=== PATIENT | female | born 1945 | race Hispanic/Latino ===

== ENCOUNTER 2018-01-22 09:38 | Inpatient (IN) | payer MEDICARE ==
[2018-01-22 10:29] VITALS: BMI 42.9
--- NOTE | 2018-01-22 11:19 | ED PDOC ---
Arrival/HPI - General Chief Complaint: Lower Extremity Problem/Injury Time Seen by Provider: 01/22/18 10:19 Historian: Patient - History of Present Illness Narrative History of Present Illness (Text): 01/22/18 11:12 72yo female with pmhx of chronic LE ulcer, diabetes, bib EMS because she couldn't get a corn husk baler/traction to be able to stand up. Patient states her carpet was removed 2days ago and when she tried to stand up on her floor, even with surgical shoes last night, she wasn't able to stand. States her visiting nurse referred her to ED for evaluation of possible causes. She denies pain in ED. Denies fever, chills, nausea, chest pain, trauma, any other complaint. Past Medical History - Provider Review Nursing Documentation Reviewed: Yes - Cardiac Hx Cardiac Disorders: Yes Hx Hypertension: Yes - Renal Hx Renal Failure: Yes - Endocrine/Metabolic Hx Diabetes Mellitus Type 2: Yes - Hematological/Oncological Hx Blood Transfusions: No Hx Blood Transfusion Reaction: No - Musculoskeletal/Rheumatological Hx Arthritis: Yes - Psychiatric Hx Depression: No Hx Emotional Abuse: No Hx Physical Abuse: No Hx Substance Use: No - Past Surgical History Past Surgical History: No Previous - Surgical History Other/Comment: cyst removal 1990 - Anesthesia Hx Anesthesia Reactions: No Hx Malignant Hyperthermia: No - Suicidal Assessment Feels Threatened In Home Enviroment: No Family/Social History - Physician Review Nursing Documentation Reviewed: Yes Family/Social History: Unknown Family HX Smoking Status: Never Smoked Hx Alcohol Use: No Hx Substance Use: No Hx Substance Use Treatment: No Allergies/Home Meds Allergies/Adverse Reactions: Allergies Penicillins Allergy (Verified 01/22/18 15:13) ITCHING Review of Systems - Physician Review All systems were reviewed & negative as marked: Yes - Review of Systems Constitutional: Normal Eyes: Normal ENT: Normal Respiratory: Normal Cardiovascular: Normal Gastrointestinal: Normal Genitourinary Female: Normal Musculoskeletal: Arthralgias (B/L leg weakness/ulcer) Skin: Normal Neurological: Normal Endocrine: Normal Hemo/Lymphatic: Normal Psychiatric: Normal Physical Exam Vital Signs Reviewed: Yes Vital Signs Temp Pulse Resp BP Pulse Ox 01/22/18 10:00 98.3 F 71 16 165/77 H 98 Temperature: Afebrile Blood Pressure: Normal Pulse: Regular Respiratory Rate: Normal Appearance: Positive for: Well-Appearing, Non-Toxic, Comfortable Pain Distress: None Mental Status: Positive for: Alert and Oriented X 3 - Systems Exam Head: Present: Atraumatic, Normocephalic Pupils: Present: PERRL Extroacular Muscles: Present: EOMI Conjunctiva: Present: Normal Mouth: Present: Moist Mucous Membranes Neck: Present: Normal Range of Motion Respiratory/Chest: Present: Clear to Auscultation, Good Air Exchange. No: Respiratory Distress, Accessory Muscle Use Cardiovascular: Present: Regular Rate and Rhythm, Normal S1, S2. No: Murmurs Abdomen: No: Tenderness, Distention, Peritoneal Signs Back: Present: Normal Inspection Upper Extremity: Present: Normal Inspection. No: Cyanosis, Edema Lower Extremity: Present: Edema (3+ nonpitting edema), Normal ROM, Erythema (B/L lower leg), Other (Weeping venous stasis ulceration). No: NORMAL PULSES (Nonpalpable secondary to edema), Tenderness, Temperature Abnormalties, Neurovascularly Intact (Diminshed) Neurological: Present: GCS=15, CN II-XII Intact, Speech Normal Skin: Present: Warm, Dry, Normal Color. No: Rashes Psychiatric: Present: Alert, Oriented x 3, Normal Insight, Normal Concentration Medical Decision Making ED Course and Treatment: 01/22/18 16:16 72yo female bib EMS for b/l lower leg weakness. Pt noted that she was scheduled for wound care on Friday with Dr. Dixon. case was TONIA Lorenzo who saw pt in ED. Pt had possible cellulitis of her b/l lower extremity. On removing the dressing by Dr. Lorenzo, pt was also noted to have bed bug . Rash was noted on patient b/l hands and legs. He redressed the wound and pt was placed in isolation. Protocols was taken to disinfect area. Labs was ordered and lukopenia was noted. Pt was admitted for cellulitis and vanco was ordered. She is allergic for cellulitis. Case was TONIA Vance who accepted the pt. Dr. Chaidez was paged but never returnedthe call CXR NAD Disposition/Present on Arrival - Present on Arrival Any Indicators Present on Arrival: No History of DVT/PE: No History of Uncontrolled Diabetes: Yes Urinary Catheter: No History of Decub. Ulcer: No History Surgical Site Infection Following: None - Disposition Have Diagnosis and Disposition been Completed?: Yes Diagnosis: Cellulitis, Bedbug bite Disposition: HOSPITALIZED Disposition Time: 10:15 Patient Plan: Admission Patient Problems: Current Active Problems Problem Status Onset Bedbug bite Acute Cellulitis Acute Condition: STABLE
[2018-01-22 12:38] LABS: BASO # 0.03 K/mm3 (0.0-2.0); BASO % 1.1 % (0.0-3.0); EOS # 0.1 (0.0-0.7); EOS % 3.2 % (1.5-5.0); GRAN # 1.66 (1.4-6.5); GRAN % 58.8 % (50.0-68.0); HEMOGLOBIN 11.6 g/dL (12.0-16.0); LYMPH # 0.7 (1.2-3.4); LYMPH % 25.9 % (22.0-35.0); MEAN CELL VOLUME 84.8 fl (80.0-105.0); MEAN CORPUSCULAR HEMOGLOBIN 28.5 pg (25.0-35.0); MEAN CORPUSCULAR HGB CONC 33.6 g/dl (31.0-37.0); MEAN PLATELET VOLUME 10.2 fl (7.0-11.0); MONO # 0.3 (0.1-0.6); RBC 4.07 10^6/uL (3.5-6.1); RED CELL DISTRIBUTION WIDTH 15.2 % (11.5-14.5)
[2018-01-22 12:41] LABS: WHITE BLOOD COUNT 2.8 10^3/ul (4.5-11.0)
[2018-01-22 12:48] LABS: INR 1.14; PARTIAL THROMBOPLASTIN TIME 27.1 Seconds (25.1-36.5); PROTHROMBIN TIME 13.1 SECONDS (9.4-12.5)
--- NOTE | 2018-01-22 13:11 | CON ---
DATE: 01/22/2018 HISTORY OF PRESENT ILLNESS: A 72-year-old female well-known to the [facility] wound care team, was seen in the emergency room for bilateral diabetic venous stasis ulcerations. The patient was unable to come to the wound center on Friday and recently had her carpets removed, which revealed bed bugs and her visiting nurse refused to come to the house until the bed bug infestation was eradicated. The visiting nurse instructed her to go to the emergency room. The patient was seen in the emergency room and bed bugs were not noticed until her dressing changes were removed, invisible bed bugs were evident. Clinical manifestations including rash were evident on her hands upon further examination. PAST MEDICAL HISTORY: The patient's medical history is significant for chronic venous hypertension with severe peripheral vascular disease, type 2 diabetes with peripheral vascular disease and diabetic neuropathy as well as cardiac disease, renal failure and osteoarthritis. PAST SURGICAL HISTORY: Includes cyst removal. SOCIAL HISTORY: The patient denies illicit drug use. Does not use drink alcohol and never used tobacco products. ALLERGIES: THE PATIENT'S ALLERGIES INCLUDE PENICILLIN, SEVERE ITCHING; ALSO ALLERGIC TO CLINDAMYCIN. CURRENT MEDICATIONS: Include metformin. The patient denies any other medications. The patient's vital signs today revealed temperature of 98.3, pulse rate of 71, blood pressure of 165/77, respiratory rate of 16. No hematology report is available at this time. No chemistries were drawn as of yet. OBJECTIVE: The patient's dressings were removed and at this time bed bug infestation was not evident. Both lower legs present with numerous superficial weeping venous stasis ulcerations. None of the ulcers probe to tendon or bone. There is no purulence. There is no underlying abscess formation noted. None of the wounds probe to bone. The area is void of any cellulitic activity at this time. There is +3 nonpitting lower extremity edema noted. The pedal pulses are nonpalpable secondary to edema. The patient has diminished protective sensation using 5.07 g monofilament wire testing bilaterally. Upon dressing removal and change, there was noted to be numerous bed bugs scattered about her emergency room bed and excoriations were present on both dorsal hands. ASSESSMENT: Diabetic with severe peripheral vascular disease and chronic venous stasis ulcerations with suspected cellulitis bilaterally. PLAN: The patient's wounds were cleansed with normal sterile saline and wounds were covered with Xeroform and a light compressive dressing. At this time, emergency room staff was notified of the presence of bed bugs. The patient was isolated in a room and the door was closed. Proper bed bug infestation protocols were then carried out. The patient will be seen and followed once admitted. David Lorenzo DPM
[2018-01-22] MEDS ORDERED: Vancomycin 1gm in NS 250ml 1 GM/250 ML BAG IVPB STA (13:16)
--- NOTE | 2018-01-22 14:33 | RAD ---
Date of service: 01/22/2018 HISTORY: admission COMPARISON: [id number]. FINDINGS: LUNGS: No active pulmonary disease. PLEURA: No significant pleural effusion identified, no pneumothorax apparent. CARDIOVASCULAR: No atherosclerotic calcification present No radiographic findings to suggest acute or significant cardiovascular disease. OSSEOUS STRUCTURES: No significant abnormalities. VISUALIZED UPPER ABDOMEN: Normal. OTHER FINDINGS: None. IMPRESSION: No active disease. No significant interval change compared to the prior examination(s).
[2018-01-22 14:38] LABS: ALB/GLOB RATIO 0.9 (1.1-1.8); ALBUMIN 3.6 g/dL (3.0-4.8); ALT/SGPT 25 U/L (7-56); AST/SGOT 24 U/L (14-36); BLOOD UREA NITROGEN 18 mg/dL (7-21); CALCIUM 9.6 mg/dL (8.4-10.5); GFR NON-AFRICAN AMERICAN > 60
[2018-01-22] MEDS ORDERED: Influenza Vaccine 60 mcg/0.5 mL SYR (4YR UP) IM ONE (23:00)
[2018-01-22] MEDS ORDERED: Pneumococcal 23-Valent Vaccine IM ONE (23:00)
[2018-01-23] MEDS: Pantoprazole 40 mg EC Tab PO SCH (09:38)
[2018-01-23] MEDS: Insulin Reg-LOW-Coverage SC SCH ×2 (12:11→16:22)
--- NOTE | 2018-01-23 16:06 | CP.PCM.PCO ---
Physician Communication Note - Physician Communication Note Physician Communication Note: Ulc Nevus face-Needs removal(-Friday)
--- NOTE | 2018-01-23 19:59 | CP.PCM.PN ---
<Aicha Centeno - Last Filed: 01/23/18 20:34> Subjective - Date & Time of Evaluation Date of Evaluation: 01/23/18 Time of Evaluation: 19:53 - Subjective Subjective: Podiatry progress note for dr. Lorenzo, 72 year old female well known to podiatry was seen at [facility] for bilateral diabetic venous stasis ulcerations. The patient is seen resting comfortable, AAox3 and in NAD. patients dressings are seen to be dry, clean and intact. Patient denies any new pedal complains. PAtient denies any acute overnight events. denies f/n/v/sob/calf pain. Objective - Vital Signs/Intake and Output Vital Signs (last 24 hours): Temp Pulse Resp BP Pulse Ox 98.2 F 63 19 119/79 96 01/23/18 06:00 01/23/18 06:00 01/23/18 06:00 01/23/18 09:38 01/23/18 06:00 Intake and Output: 01/23/18 01/24/18 18:59 06:59 Intake Total 480 Balance 480 - Medications Medications: Current Medications Insulin Human Regular (Humulin R Low) 0 units SC [facility]; Protocol Last Admin: 01/23/18 16:22 Dose: Not Given Lisinopril (Zestril) 10 mg PO DAILY [facility] Last Admin: 01/23/18 09:38 Dose: 10 mg Metformin HCl (Glucophage) 500 mg PO DAILY [facility] Last Admin: 01/23/18 09:38 Dose: 500 mg Pantoprazole Sodium (Protonix Ec Tab) 40 mg PO DAILY [facility] Last Admin: 01/23/18 09:38 Dose: 40 mg Tramadol HCl (Ultram) 50 mg PO Q8H PRN PRN Reason: Pain, Mild (1-3) Last Admin: 01/23/18 13:24 Dose: 50 mg - Labs Labs: 01/22/18 12:20 01/22/18 14:00 PT 13.1 SECONDS (9.4-12.5) H 01/22/18 12:20 INR 1.14 01/22/18 12:20 APTT 27.1 Seconds (25.1-36.5) 01/22/18 12:20 - Constitutional Appears: Well, Non-toxic, No Acute Distress - Head Exam Head Exam: ATRAUMATIC, NORMOCEPHALIC - Extremities Exam Additional comments: Dressing clean, dry, and intact. From previous note: vascular: nonpalpable DP.PT secondary to edema, minimal erythema to bilateral lower extremity. CFT<3 secs x 10 derm: bilateral lower leg numerous superficial weeping venous stasis ulcerations, non probe to tendon or bone, no purulence, no underlying abscess formation noted, void of cellulitic activity, +3 nonpitting edema to lower extremity b/l neuro: diminished protective sensation ortho: no pain on palpation to the lower extremity b/l - Neurological Exam Neurological Exam: Alert, Awake, Oriented x3 - Psychiatric Exam Psychiatric exam: Normal Affect, Normal Mood - Skin Skin Exam: Normal Color Assessment and Plan - Assessment and Plan (Free Text) Assessment: 72 yo female with severe peripheral vascular disease and chronic venous stasis ulcerations with suspected cellulitis bilaterally. Plan: Patient seen and evaluated chart, labs and vitals reviewed; afebrile and WBC 2.8 bilateral lower extremity dressing clean, dry and intact; dressed with xeroform, gauze, ABD, kerlix, and tubigrip patient stable for discharge from podiatry point of view. Podiatry will continue to follow the patient while in house <David Lorenzo - Last Filed: 01/24/18 09:26> Objective - Vital Signs/Intake and Output Vital Signs (last 24 hours): Temp Pulse Resp BP Pulse Ox 98.5 F 98 H 18 140/79 95 01/24/18 08:17 01/24/18 08:17 01/24/18 08:17 01/24/18 08:17 01/24/18 08:17 Intake and Output: 01/24/18 01/24/18 06:59 18:59 Intake Total 840 Balance 840 - Medications Medications: Current Medications Doxycycline Hyclate (Doryx) 100 mg PO Q12 [facility]; Protocol Insulin Human Regular (Humulin R Low) 0 units SC [facility]; Protocol Last Admin: 01/24/18 08:44 Dose: Not Given Lisinopril (Zestril) 10 mg PO DAILY [facility] Last Admin: 01/23/18 09:38 Dose: 10 mg Metformin HCl (Glucophage) 500 mg PO DAILY [facility] Last Admin: 01/23/18 09:38 Dose: 500 mg Pantoprazole Sodium (Protonix Ec Tab) 40 mg PO DAILY [facility] Last Admin: 01/23/18 09:38 Dose: 40 mg Tramadol HCl (Ultram) 50 mg PO Q8H PRN PRN Reason: Pain, Mild (1-3) Last Admin: 01/23/18 13:24 Dose: 50 mg - Labs Labs: 01/22/18 12:20 01/22/18 14:00 PT 13.1 SECONDS (9.4-12.5) H 01/22/18 12:20 INR 1.14 01/22/18 12:20 APTT 27.1 Seconds (25.1-36.5) 01/22/18 12:20 Attending/Attestation - Attestation I have personally seen and examined this patient.: Yes I have fully participated in the care of the patient.: Yes I have reviewed all pertinent clinical information, including history, physical exam and plan: Yes
--- NOTE | 2018-01-24 01:30 | PN ---
DATE: 01/23/2018 SUBJECTIVE: The patient was seen and examined on the bedside on 01/23/2018. This progress note is for 01/23/2018. Looking comfortable. lesion on the face near the upper lip. I told Dr. Barrientos about that. No fever. No chills. Has rash on the lower extremities. No nausea, vomiting, diarrhea. No headache. No dizziness. No chest pain. No palpitation. No hematuria or hematochezia. PHYSICAL EXAMINATION: VITAL SIGNS: Temperature 98.2, pulse 53, respiratory rate 19, blood pressure 119/96, pulse oximetry 96. HEENT: Head normocephalic, atraumatic. Eyes PERRLA. Extraocular muscles intact. Conjunctivae clear. Nose patent. NECK: Supple. No carotid bruit. No JVD or thyromegaly. CHEST: Bilaterally symmetrical. HEART: S1 and S2 positive. LUNGS: Clear to auscultation. ABDOMEN: Soft. Bowel sounds positive. No organomegaly. EXTREMITIES: Positive edema. Has ulcers. It is red, warm. NEUROLOGICAL: The patient is awake and alert. Follows simple commands. MEDICATIONS: Insulin, lisinopril, metformin, Protonix, tramadol. LABORATORY DATA: White blood cells 2.8, hemoglobin 11.6, hematocrit 34.5, platelets 217. Sodium 138, potassium 3.7, BUN 18, creatinine 0.7, glucose 98. ASSESSMENT AND PLAN: Ms. Natalya Mcwilliams, 72-year-old lady with leukopenia, anemia, has severe peripheral vascular disease and chronic venous stasis ulceration with suspected cellulitis bilaterally. Podiatry is on the case. They put the dressing. The patient has lesion on the face. According to Dr. Barrientos, it should be removed because it is ulcerated. The patient has history of diabetes mellitus, obesity, arthritis, noncompliance. We put consult with Dr. Daniels, Infectious Disease. The patient is allergic with penicillin. Repeat labs. We will follow up. Malina Vance MD MTDD
[2018-01-24 06:59] LABS: IRON 32 ug/dL (45-180)
[2018-01-24 07:15] LABS: % IRON SATURATION 12 % (20-55); TOTAL IRON BINDING CAPACITY 270 ug/dL (265-497)
[2018-01-24] MEDS: Insulin Reg-LOW-Coverage SC SCH ×4 (08:44→22:14)
[2018-01-24] MEDS: Pantoprazole 40 mg EC Tab PO SCH (10:12)
--- NOTE | 2018-01-24 12:07 | CP.PCM.PN ---
<Crispin Tolliver - Last Filed: 01/24/18 11:56> Subjective - Date & Time of Evaluation Date of Evaluation: 01/24/18 Time of Evaluation: 11:56 - Subjective Subjective: Podiatry progress note for dr. Lorenzo, 72 year old female well known to podiatry was seen at bedside for bilateral diabetic venous stasis ulcerations. The patient is seen resting comfortable, AAOx3 and in NAD. patients dressings are seen to be dry, clean and intact. Patient denies any new pedal complains. Patient denies any acute overnight events. denies any overnight F/N/V/C or SOB. Objective - Vital Signs/Intake and Output Vital Signs (last 24 hours): Temp Pulse Resp BP Pulse Ox 98.5 F 78 18 158/74 H 95 01/24/18 08:17 01/24/18 10:12 01/24/18 08:17 01/24/18 10:12 01/24/18 08:17 Intake and Output: 01/24/18 01/24/18 06:59 18:59 Intake Total 840 Balance 840 - Medications Medications: Current Medications Doxycycline Hyclate (Doryx) 100 mg PO Q12 [facility]; Protocol Last Admin: 01/24/18 10:11 Dose: 100 mg Insulin Human Regular (Humulin R Low) 0 units SC [facility]; Protocol Last Admin: 01/24/18 08:44 Dose: Not Given Lisinopril (Zestril) 10 mg PO DAILY [facility] Last Admin: 01/24/18 10:12 Dose: 10 mg Metformin HCl (Glucophage) 500 mg PO DAILY [facility] Last Admin: 01/24/18 10:11 Dose: 500 mg Pantoprazole Sodium (Protonix Ec Tab) 40 mg PO DAILY [facility] Last Admin: 01/24/18 10:12 Dose: 40 mg Tramadol HCl (Ultram) 50 mg PO Q8H PRN PRN Reason: Pain, Mild (1-3) Last Admin: 01/24/18 10:12 Dose: 50 mg - Labs Labs: 01/22/18 12:20 01/22/18 14:00 PT 13.1 SECONDS (9.4-12.5) H 01/22/18 12:20 INR 1.14 01/22/18 12:20 APTT 27.1 Seconds (25.1-36.5) 01/22/18 12:20 - Constitutional Appears: Well, Non-toxic, No Acute Distress - Head Exam Head Exam: ATRAUMATIC, NORMOCEPHALIC - Extremities Exam Additional comments: B/L LE focused exam: Vascular: non-palpable DP/PT secondary to edema, Minimal erythema to bilateral lower extremity. Cap refill <3 secs x 10 Neuro: diminished protective sensation. Derm: bilateral lower leg numerous minimally weeping superficial venous stasis ulcerations, non probe to tendon orbone, no purulence, no underlying abscess formation noted, +2 nonpitting edema to lower extremity b/l. No clinical signs of active infection. MSK: Minimal pain on palpation to the lower extremity b/l - Neurological Exam Neurological Exam: Alert, Awake, Oriented x3 - Psychiatric Exam Psychiatric exam: Normal Affect, Normal Mood Assessment and Plan - Assessment and Plan (Free Text) Assessment: 72 yo female with severe peripheral vascular disease and chronic venous stasis ulcerations with suspected cellulitis bilaterally. Plan: Patient seen and evaluated at the bedside Plan discussed in details with attending Dr. Lorenzo Chart, labs and vitals reviewed; afebrile and WBC 2.8 (01/22) bilateral lower extremity dressing clean, dry and intact; dressed with xeroform, Adaptic, gauze, ABD, kerlix, and tubigrip patient stable from podiatry point of view. Podiatry will continue to follow up the patient while in house <David Lorenzo - Last Filed: 01/27/18 17:08> Objective - Vital Signs/Intake and Output Vital Signs (last 24 hours): Temp Pulse Resp BP Pulse Ox 98.1 F 67 20 130/79 96 01/27/18 14:00 01/27/18 14:00 01/27/18 14:00 01/27/18 14:00 01/27/18 14:00 - Labs Labs: 01/27/18 07:00 01/27/18 07:00 PT 14.4 SECONDS (9.4-12.5) H 01/26/18 06:45 INR 1.25 01/26/18 06:45 APTT 26.2 Seconds (25.1-36.5) 01/26/18 06:45 Attending/Attestation - Attestation I have personally seen and examined this patient.: Yes I have fully participated in the care of the patient.: Yes I have reviewed all pertinent clinical information, including history, physical exam and plan: Yes
[2018-01-24 14:54] LABS: FOLATE 3.8 ng/mL
[2018-01-24] MEDS: Vancomycin 1gm in NS 250ml 1 GM/250 ML BAG IVPB SCH (22:02)
[2018-01-24] MEDS: Meropenem IV 1 gm in NS 1 GM/50 ML BAG IVPB SCH (22:03)
--- NOTE | 2018-01-25 01:35 | CON ---
DATE: 01/24/2018 SUBJECTIVE: The patient is seen in 570, bed 2. CHIEF COMPLAINT: Weakness from several days. HISTORY OF PRESENT ILLNESS: This is 72-year-old female, who was seen earlier today in 570, bed 2, with chronic lower ulcers, history of diabetes mellitus, admitted because of unable to stand up for 2 days. No fevers and no chills. No nausea. No vomiting. No abdominal pain. No diarrhea or constipation. No headaches or blurred vision. REVIEW OF SYSTEMS: Reveals 12-point review of systems is performed. PAST MEDICAL HISTORY: Significant for peripheral vascular disease, diabetes mellitus, renal disease, diabetic neuropathy, and chronic nonhealing lower extremity ulcers and arthritis. PAST SURGICAL HISTORY: Significant for cyst. ALLERGIES: THE PATIENT IS ALLERGIC TO PENICILLIN. MEDICATIONS: Medications at home are reviewed and include, tramadol, metformin, Januvia. PHYSICAL EXAMINATION VITAL SIGNS: Temperature is 98, blood pressure is 150/70, heart rate of 98, respiratory rate of 20. HEENT: Unremarkable. NECK: Supple. LUNGS: Have decreased breath sounds. HEART: Normal S1, S2. ABDOMEN: Soft and nontender. EXTREMITIES: Examination of lower extremities, dressing and chronic ulcers, and Dr. Lorenzo's progress note from yesterday describes the wound, venous stasis ulcerations, and Dr. Vance's progress note from today is reviewed. LABORATORY DATA: Laboratory examination reveals the patient's white count of 3.8, hemoglobin of 11, platelets of 217. Coagulation is noted. Chemistries reveals a BUN of 18, creatinine of 0.7. Microbiology reveals the blood cultures are negative. ASSESSMENT AND PLAN: This is a 72-year-old who has chronic lower extremity ulcers, diabetes mellitus, diabetic neuropathy, peripheral vascular disease, arthritis, who is allergic to penicillin who is admitted with bilateral lower extremity ulcers, venous stasis with cellulitis of one leg more so than other and has leukopenia. She had a heart rate of 98 this morning and cellulitis, which in a patient who is allergic to penicillin. We will treat the patient with vancomycin and meropenem. The patient's penicillin allergy is not . We will discontinue the doxycycline. We will ask for wound cultures and we also request an human immunodeficiency virus because there is leukopenia, and we will follow closely with you. We will also request a hemoglobin A1c. We will discontinue doxycycline at this point. Estuardo Daniels MD
[2018-01-25] MEDS: Meropenem IV 1 gm in NS 1 GM/50 ML BAG IVPB SCH ×3 (05:41→21:48)
[2018-01-25 06:35] LABS: HEMOGLOBIN 11.4 g/dL (12.0-16.0); MEAN CELL VOLUME 88.2 fl (80.0-105.0); MEAN CORPUSCULAR HEMOGLOBIN 28.6 pg (25.0-35.0); MEAN CORPUSCULAR HGB CONC 32.4 g/dl (31.0-37.0); MEAN PLATELET VOLUME 10.4 fl (7.0-11.0); RBC 3.99 10^6/uL (3.5-6.1); WHITE BLOOD COUNT 5.2 10^3/ul (4.5-11.0)
[2018-01-25 06:51] LABS: BLOOD UREA NITROGEN 17 mg/dL (7-21); CALCIUM 9.1 mg/dL (8.4-10.5); GFR NON-AFRICAN AMERICAN > 60
--- NOTE | 2018-01-25 07:47 | CP.PCM.CON ---
History of Present Illness - History of Present Illness History of Present Illness: General Surgery Consult Note For Dr. Barrientos CC: Upper Lip lesion This is a 72M with a PMH standing b/l LE ulcers, chronic lymphedea, dm, oa, htn, who was admitted for celluitis. Our service was consulted for a lesion on her upper lip which she has had for "a long time". It bleeds when she scratches it, otherwise it is not painful. We discussed removing the lesion and she was amenable. PMH: See above PSH: Skin lesions ALL: PCN Review of Systems - Review of Systems Review of Systems: 12 point review of symptoms conducted and negative except for skin lesions Past Patient History - Past Social History Smoking Status: Never Smoked - CARDIAC Hx Cardiac Disorders: Yes Hx Hypertension: Yes Hx Peripheral Vascular Disease: Yes - PULMONARY Hx Respiratory Disorders: No - NEUROLOGICAL Hx Neurological Disorder: No (DIABETIC NEUROPATHY) - HEENT Hx HEENT Problems: No - RENAL Hx Chronic Kidney Disease: Yes Hx Renal Failure: Yes - ENDOCRINE/METABOLIC Hx Diabetes Mellitus Type 2: Yes - HEMATOLOGICAL/ONCOLOGICAL Hx Blood Disorders: No - INTEGUMENTARY Hx Dermatological Problems: Yes Other/Comment: 01-22-18 GENERALIZED RASH ALL OVER ARMS AND LEGS AND BACK ,CHEST- BED BUGS. BILATERAL CHRONIC VENOUS STASIS ULCER.GOES TO WOUND CENTER . - MUSCULOSKELETAL/RHEUMATOLOGICAL Hx Arthritis: Yes - GASTROINTESTINAL Hx Gastrointestinal Disorders: No - GENITOURINARY/GYNECOLOGICAL Hx Genitourinary Disorders: No (URGENCY) - PSYCHIATRIC Hx Psychophysiologic Disorder: No Hx Depression: No Hx Emotional Abuse: No Hx Physical Abuse: No Hx Substance Use: No - SURGICAL HISTORY Hx Surgeries: Yes (CYST REMOVED TO RIGHT NECK AREA,TONSILLECTOMY,PICC IN AND OUT) Other/Comment: cyst removal 1990 - ANESTHESIA Hx Anesthesia Reactions: No Hx Malignant Hyperthermia: No Meds Allergies/Adverse Reactions: Allergies Allergy/AdvReac Type Severity Reaction Status Date / Time Penicillins Allergy ITCHING Verified 01/22/18 15:13 - Medications Medications: Current Medications Meropenem (Merrem Iv 1 Gm Premix) 1 gm in 50 mls @ 100 mls/hr IVPB Q8 [facility]; Protocol Stop: 02/02/18 22:01 Last Admin: 01/25/18 05:41 Dose: 100 mls/hr Vancomycin HCl (Vancomycin 1gm) 1 gm in 250 mls @ 167 mls/hr IVPB Q12 [facility]; Protocol Stop: 02/02/18 22:01 Last Admin: 01/24/18 22:02 Dose: 167 mls/hr Insulin Human Regular (Humulin R Low) 0 units SC ACHS [facility]; Protocol Last Admin: 01/24/18 22:14 Dose: Not Given Lisinopril (Zestril) 10 mg PO DAILY [facility] Last Admin: 01/24/18 10:12 Dose: 10 mg Metformin HCl (Glucophage) 500 mg PO DAILY [facility] Last Admin: 01/24/18 10:11 Dose: 500 mg Pantoprazole Sodium (Protonix Ec Tab) 40 mg PO DAILY [facility] Last Admin: 01/24/18 10:12 Dose: 40 mg Tramadol HCl (Ultram) 50 mg PO Q8H PRN PRN Reason: Pain, Mild (1-3) Last Admin: 01/24/18 10:12 Dose: 50 mg Physical Exam - Constitutional Appears: Non-toxic, No Acute Distress - Head Exam Head Exam: ATRAUMATIC, NORMOCEPHALIC - Eye Exam Eye Exam: EOMI - ENT Exam ENT Exam: Mucous Membranes Moist - Respiratory Exam Respiratory Exam: NORMAL BREATHING PATTERN - Cardiovascular Exam Cardiovascular Exam: +S1, +S2 - GI/Abdominal Exam GI & Abdominal Exam: Soft. absent: Distended, Firm, Guarding, Hernia, Tenderness - Neurological Exam Neurological exam: Alert, Oriented x3 - Psychiatric Exam Psychiatric exam: Normal Affect, Normal Mood - Skin Skin Exam: Dry, Intact Results - Vital Signs Recent Vital Signs: Last Vital Signs Temp 98.1 F 01/24/18 22:07 Pulse 64 01/24/18 22:07 Resp 18 01/24/18 22:07 BP 116/69 01/24/18 22:07 Pulse Ox 95 01/24/18 22:07 - Labs Result Diagrams: 01/25/18 05:00 01/25/18 05:00 Labs: Laboratory Results - last 24 hr 01/24/18 01/24/18 01/24/18 06:00 11:18 16:34 WBC RBC Hgb Hct MCV MCH MCHC RDW Plt Count MPV Sodium Potassium Chloride Carbon Dioxide Anion Gap BUN Creatinine Est GFR ( Amer) Est GFR (Non-Af Amer) POC Glucose (mg/dL) 123 H 87 Random Glucose Calcium Vitamin B12 601 Folate 3.8 TSH 3rd Generation 01/25/18 01/25/18 01/25/18 05:00 05:00 05:00 WBC 5.2 D RBC 3.99 Hgb 11.4 L Hct 35.2 L MCV 88.2 D MCH 28.6 MCHC 32.4 RDW 15.0 H Plt Count 164 MPV 10.4 Sodium 136 Potassium 3.9 Chloride 107 Carbon Dioxide 23 Anion Gap 10 BUN 17 Creatinine 0.7 Est GFR ( Amer) > 60 Est GFR (Non-Af Amer) > 60 POC Glucose (mg/dL) Random Glucose 97 Calcium 9.1 Vitamin B12 Folate TSH 3rd Generation 3.58 Assessment & Plan - Assessment and Plan (Free Text) Assessment: 72F with a lip lesion Plan for OR in AM NPO Past midnight D/W Dr. Floyd Graham PGY3
[2018-01-25] MEDS: Insulin Reg-LOW-Coverage SC SCH ×4 (08:00→21:47)
[2018-01-25] MEDS: Vancomycin 1gm in NS 250ml 1 GM/250 ML BAG IVPB SCH ×2 (10:16→22:32)
[2018-01-25] MEDS: Pantoprazole 40 mg EC Tab PO SCH (10:16)
--- NOTE | 2018-01-25 11:32 | PN ---
DATE: 01/25/2018 SUBJECTIVE: The patient was seen and examined on the bedside on 01/24/2018. She is in private room. Oriented x3. Has dressing on the legs. It is dry, clean and intact. Seen by the Podiatry. No fever. No chills. No nausea or vomiting. No headache. No dizziness. PHYSICAL EXAMINATION: VITAL SIGNS: Temperature 98.5, pulse 78, respiratory rate 18, blood pressure 150/70, pulse oximetry 95. HEENT: Head normocephalic, atraumatic. Eyes PERRLA. Extraocular muscles intact. Conjunctivae clear. Nose patent. Mucous membrane moist. NECK: Supple. No carotid bruit. No JVD or thyromegaly. CHEST: Bilaterally symmetrical. HEART: S1 and S2 positive. LUNGS: Clear to auscultation. ABDOMEN: Soft. Bowel sounds positive. No organomegaly. EXTREMITIES: No edema. No cyanosis. NEUROLOGICAL: The patient is awake and alert. Moving all 4 extremities. No focal deficits. MEDICATIONS: Doxycycline, insulin, Zestril, Glucophage, Protonix, tramadol. LABORATORY DATA: White blood cells 2.8, hemoglobin 11.6, hematocrit 34.5, platelets 270. Sodium 138, potassium 3.7, BUN 18, creatinine 0.7, glucose 98. ASSESSMENT AND PLAN: Ms. Natalya Mcwilliams, a 72-year-old lady with leukopenia, anemia. Seen and evaluated on the bedside. Has bilateral stasis dermatitis. Has dressing that is clean, dry and intact. Dressed with Xeroform. Seen by Infectious Disease, Dr. Daniels. The patient has history of peripheral vascular disease, diabetes mellitus, renal disease, diabetic neuropathy, chronic nonhealing lower extremity ulcers and arthritis. The patient is started on vancomycin and meropenem by Infectious Disease. Discontinued the doxycycline. Ordered wound cultures. Ordered human immunodeficiency virus test because of the leukopenia. Out of bed, physical therapy. Repeat labs. We will follow up. Malina Vance MD
--- NOTE | 2018-01-25 22:05 | PN ---
DATE: 01/25/2018 SUBJECTIVE: The patient is in bed in no acute distress, nontoxic. PHYSICAL EXAMINATION: VITAL SIGNS: On exam, temperature is 98, she has been afebrile throughout this hospitalization with a heart rate of 62, blood pressure is 120/60, respiratory rate of 18. HEENT: Examination of HEENT is unremarkable. NECK: Supple. LUNGS: Have decreased breath sounds. HEART: Normal S1, S2. ABDOMEN: Soft, nontender. LABORATORY DATA: Laboratory examination reveals a white count of 5.2, hemoglobin of 11, platelets of 162. Chemistries reveal a BUN of 17, creatinine of 0.7. Microbiology reveals the blood cultures are no growth and chest x-ray, no active pulmonary disease. ASSESSMENT AND PLAN: A 72-year-old with chronic lower extremity ulcers, diabetes, diabetic neuropathy, peripheral vascular disease, arthritis, ALLERGIC TO PENICILLIN, bilateral lower extremity ulcer, venous ulcers with cellulitis, one leg more than the other, leukopenia with A PATIENT WHO IS ALLERGIC TO PENICILLIN, currently on vancomycin and meropenem, tolerating antibiotics. We will check on the wound cultures and blood cultures are thus far reported to be negative. We will discuss with Podiatry regarding vascular workup, underlying osteomyelitis to be ruled out. We will follow closely with you. Estuardo Daniels MD
[2018-01-25] MEDS: Nystatin 100,000 Units/gm Topical Pow(15 gm) TOP SCH (22:31)
--- NOTE | 2018-01-26 01:25 | PN ---
DATE: 01/25/2018 SUBJECTIVE: The patient was seen and examined on the bedside on 01/25/2018. The patient is on isolation. Legs are getting better. No fever, no chills. No hematuria or hematochezia. No headache. No dizziness. No chest pain or palpitation. Still has a lesion on her left upper lip and has a scab. PHYSICAL EXAMINATION: VITAL SIGNS: Temperature 98.6, pulse 64, respiratory rate 18, blood pressure 116/59, pulse oximetry 95%. HEENT: Head: Normocephalic, atraumatic. Eyes: PERRLA. Extraocular muscles intact. Conjunctivae clear. Nose patent. Mucous membranes moist. NECK: Supple. No carotid bruit, no JVD or thyromegaly. CHEST: Bilaterally symmetrical. HEART: S1 and S2 positive. LUNGS: Clear to auscultation. ABDOMEN: Soft. Bowel sounds positive. No organomegaly. EXTREMITIES: No edema. No cyanosis. NEUROLOGICAL: The patient is awake and alert. Moving all 4 extremities. No focal deficits. LABORATORY DATA: White blood cell is 5.2, hemoglobin 11.4, hematocrit 35.2, platelet 154. Sodium 136, potassium 3.9, BUN 17, creatinine 0.7, glucose 97. ASSESSMENT AND PLAN: Ms. Natalya Mcwilliams is a 72-year-old lady with anemia, with a lip lesion in left upper lip, plan for OR in a.m., n.p.o. after midnight. Appreciated Dr. Barrientos' input. The patient has history of bilateral leg ulcers, chronic lymphedema, diabetes mellitus, osteoarthritis, hypertension, cellulitis of the legs, getting antibiotics. Out of bed. Physical therapy. Gastric and deep venous thrombosis prophylaxes. Repeat labs. We will follow up. Malina Vance MD
[2018-01-26] MEDS: Meropenem IV 1 gm in NS 1 GM/50 ML BAG IVPB SCH ×2 (05:21→13:10)
[2018-01-26 07:18] LABS: ALB/GLOB RATIO 0.8 (1.1-1.8); ALT/SGPT 23 U/L (7-56); AST/SGOT 16 U/L (14-36); BASO # 0.02 K/mm3 (0.0-2.0); BASO % 0.5 % (0.0-3.0); BLOOD UREA NITROGEN 17 mg/dL (7-21); CALCIUM 9.1 mg/dL (8.4-10.5); EOS # 0.1 (0.0-0.7); EOS % 2.2 % (1.5-5.0); GFR NON-AFRICAN AMERICAN > 60; GRAN # 2.35 (1.4-6.5); HEMOGLOBIN 11.7 g/dL (12.0-16.0); LYMPH # 0.7 (1.2-3.4); LYMPH % 19.9 % (22.0-35.0); MEAN CELL VOLUME 87.3 fl (80.0-105.0); MEAN CORPUSCULAR HGB CONC 33.2 g/dl (31.0-37.0); MEAN PLATELET VOLUME 10.9 fl (7.0-11.0); MONO # 0.5 (0.1-0.6); MONO % 13.4 % (1.0-6.0); RBC 4.03 10^6/uL (3.5-6.1); RED CELL DISTRIBUTION WIDTH 14.7 % (11.5-14.5); WHITE BLOOD COUNT 3.7 10^3/ul (4.5-11.0)
[2018-01-26 07:21] LABS: INR 1.25; PARTIAL THROMBOPLASTIN TIME 26.2 Seconds (25.1-36.5); PROTHROMBIN TIME 14.4 SECONDS (9.4-12.5)
--- NOTE | 2018-01-26 07:43 | HP ---
The patient is a 72-year-old female. The patient was seen and examined at the bedside on 01/22/2018. CHIEF COMPLAINT: Lower extremity swelling and pain. HISTORY OF PRESENT ILLNESS: Ms. 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 The patient states that her carpet was removed two days ago and when she tried to stand up on her floor even with surgical shoes last night, she was not able to stand, states her visiting nurse referred her to ED for evaluation of possibly weakness of the legs. She denies pain. No nausea, vomiting, or diarrhea. No fever. No chills. No headache. No dizziness. We admitted the patient and we will involve Podiatry and Infectious Disease. PAST MEDICAL HISTORY: History of cellulitis of the legs, hypertension, renal failure, diabetes mellitus type 2, arthritis. FAMILY HISTORY: Father and mother, noncontributory. HABITS: Never smoked. No drugs. No ethanol. ALLERGIES: THE PATIENT IS ALLERGIC WITH PENICILLIN. REVIEW OF SYSTEMS: The patient was seen and examined on the bedside in the Emergency Room, complaining about leg pain. Bilateral legs are swollen and weak. Has knee pain. No headache. No dizziness. No fever. No chills. No hematuria. No hematochezia. PHYSICAL EXAMINATION: VITAL SIGNS: Temperature 98.3, pulse 71, respiratory rate 16, blood pressure 165/77, pulse oximetry 98%. HEENT: Head: Normocephalic and atraumatic. Eyes: PERRLA. Extraocular muscles are intact. Conjunctivae clear. Nose patent. Mucous membrane moist. NECK: Supple. No carotid bruit. No JVD or thyromegaly. CHEST: Bilaterally symmetrical. HEART: S1 and S2 positive. LUNGS: Clear to auscultation. ABDOMEN: Soft. Bowel sounds positive. No organomegaly. EXTREMITIES: Lower extremities have edema 3+, nonpitting, normal range of motion, erythema bilaterally in both extremities, weeping venous stasis ulceration. NEUROLOGICAL: The patient is awake, alert. Follow simple commands. LABORATORY DATA: White blood cell 2.8, hemoglobin 11.6, hematocrit 34.5, platelets 217. Sodium 138, potassium 3.7, BUN 18, creatinine 0.7, glucose 126. ASSESSMENT AND PLAN: Ms. Natalya Mcwilliams is a 72-year-old female with leukopenia, anemia, hyperglycemia, obesity, bilateral venous stasis ulceration of the legs, severe peripheral vascular disease, cellulitis of the legs. Infectious Disease consult called. Podiatry is on the case. Repeat labs. We will follow up. Malina Vance MD MTDD
--- NOTE | 2018-01-26 07:46 | CP.PCM.PCO ---
Physician Communication Note - Physician Communication Note Physician Communication Note: Face lesion to be removed today(local anesthesia)
[2018-01-26] MEDS ORDERED: Lidocaine 1% w Epi 1:100,000 Inj ONE (08:10)
[2018-01-26] MEDS: Pantoprazole 40 mg EC Tab PO SCH (09:55)
[2018-01-26] MEDS: Insulin Reg-LOW-Coverage SC SCH ×4 (09:55→22:28)
[2018-01-26] MEDS: Vancomycin 1gm in NS 250ml 1 GM/250 ML BAG IVPB SCH (09:56)
[2018-01-26] MEDS: Nystatin 100,000 Units/gm Topical Pow(15 gm) TOP SCH ×3 (09:56→17:24)
--- NOTE | 2018-01-26 14:59 | CP.PCM.PN ---
Subjective - Date & Time of Evaluation Date of Evaluation: 01/26/18 Time of Evaluation: 14:56 - Subjective Subjective: Podiatry progress note for dr. Lorenzo/ dr Dixon 72 year old female well known to podiatry was seen at bedside for bilateral diabetic venous stasis ulcerations. The patient is seen resting comfortable, AAOx3 and in NAD. patients dressings are seen to be dry, clean and intact. Patient denies any new pedal complains. Patient denies any acute overnight events. denies any overnight F/N/V/C or SOB. Objective - Vital Signs/Intake and Output Vital Signs (last 24 hours): Temp Pulse Resp BP Pulse Ox 97.9 F 70 20 155/96 H 96 01/26/18 07:33 01/26/18 07:33 01/26/18 07:33 01/26/18 07:33 01/26/18 07:33 Intake and Output: 01/26/18 01/26/18 06:59 18:59 Intake Total 1190 Balance 1190 - Medications Medications: Current Medications Meropenem (Merrem Iv 1 Gm Premix) 1 gm in 50 mls @ 100 mls/hr IVPB Q8 [facility]; Protocol Stop: 02/02/18 22:01 Last Admin: 01/26/18 13:10 Dose: 100 mls/hr Vancomycin HCl (Vancomycin 1gm) 1 gm in 250 mls @ 167 mls/hr IVPB Q12 [facility]; Pr otocol Stop: 02/02/18 22:01 Last Admin: 01/26/18 09:56 Dose: 167 mls/hr Insulin Human Regular (Humulin R Low) 0 units SC ACHS [facility]; Protocol Last Admin: 01/26/18 11:09 Dose: Not Given Lisinopril (Zestril) 10 mg PO DAILY [facility] Last Admin: 01/26/18 09:56 Dose: 10 mg Metformin HCl (Glucophage) 500 mg PO DAILY [facility] Last Admin: 01/26/18 09:55 Dose: 500 mg Nystatin (Nystop Topical Powder) 1 gm TOP TID [facility] Last Admin: 01/26/18 13:10 Dose: 1 applic Pantoprazole Sodium (Protonix Ec Tab) 40 mg PO DAILY [facility] Last Admin: 01/26/18 09:55 Dose: 40 mg Tramadol HCl (Ultram) 50 mg PO Q8H PRN PRN Reason: Pain, Mild (1-3) Last Admin: 01/26/18 09:55 Dose: 50 mg - Labs Labs: 01/26/18 06:45 01/26/18 06:45 PT 14.4 SECONDS (9.4-12.5) H 01/26/18 06:45 INR 1.25 01/26/18 06:45 APTT 26.2 Seconds (25.1-36.5) 01/26/18 06:45 - Constitutional Appears: Well, Non-toxic, No Acute Distress - Head Exam Head Exam: ATRAUMATIC, NORMOCEPHALIC - Extremities Exam Additional comments: B/L LE focused exam: Vascular: non-palpable DP/PT secondary to edema, Minimal erythema to bilateral lower extremity. Cap refill <3 secs x 10 Neuro: diminished protective sensation. Derm: bilateral lower leg numerous minimally weeping superficial venous stasis ulcerations, non probe to tendon or bone, no purulence, no underlying abscess formation noted, +2 nonpitting edema to lower extremity b/l. No clinical signs of active infection, xerotic skin noted circumferentially to the leg b/l MSK: Minimal pain on palpation to the lower extremity b/l - Neurological Exam Neurological Exam: Alert, Awake, Oriented x3 - Psychiatric Exam Psychiatric exam: Normal Affect - Skin Skin Exam: Normal Color Assessment and Plan - Assessment and Plan (Free Text) Assessment: 72 yo female with severe peripheral vascular disease and chronic venous stasis ulcerations with resolving cellulitis bilaterally. Plan: Patient seen and evaluated at the bedside Plan discussed in details with attending Dr Dixon Chart, labs and vitals reviewed; afebrile and WBC 3.7 (01/26) bilateral lower extremity dressing clean, dry and intact; dressed with xeroform, gauze patient stable from podiatry point of view after ultrasound of the LE Lac-hydrin ordered Multipodus boots ordered and to be worn at all times while laying in bed Podiatry will continue to follow up the patient while in house
[2018-01-26] MEDS: Ammonium Lactate 12% Cream (140 g) TOP SCH (17:24)
--- NOTE | 2018-01-26 18:49 | US ---
PROCEDURE: Lower extremity DOTTY exam HISTORY: Peripheral vascular disease with pain and ulceration. Diabetes. PHYSICIAN(S): Alfredo Llanos MD. FINDINGS: The resting DOTTY's are normal: right, 1.09and left, 1.05. The brachial systolic pressures are symmetric. The low thigh pressures and waveforms are relatively normal. The calf PVR waveforms augment normally. No significant gradients are noted across the thighs. The ankle and metatarsal waveforms are relatively normal and symmetric. No significant pressure gradients are noted across the lower legs. IMPRESSION: 1. Relatively normal DOTTY and PVR examination at rest.
--- NOTE | 2018-01-26 21:21 | PN ---
DATE: 01/26/2018 SUBJECTIVE: The patient is in bed in no acute distress, nontoxic. PHYSICAL EXAMINATION VITAL SIGNS: Temperature is 97, blood pressure is 150/90, respiratory rate of 18. HEENT: Unremarkable. NECK: Supple. LUNGS: Decreased breath sounds. HEART: Normal S1, S2. ABDOMEN: Soft. EXTREMITIES: Examination of the legs reveals chronic changes. No evidence of an active infection. Minimal erythema. LABORATORY EXAMINATION: Reveals a white count of 3.7, hemoglobin of 11. Chemistries reveal a BUN of 17, creatinine of 0.7. Serology is noted. Microbiology reveals the blood cultures are no growth. Right leg culture is noted. ASSESSMENT AND PLAN: A 72-year-old with chronic lower extremity ulcer, diabetes, diabetic neuropathy, peripheral vascular disease, arthritis, bilateral lower extremity venous ulcers, cellulitis, who is ALLERGIC TO PENICILLIN, on vancomycin and meropenem, tolerating the antibiotics, may be able to switch to p.o. doxycycline. My discussion with Case Management and nurse practitioner states that Podiatry does not feel there is any osteomyelitis. We will switch to p.o. doxycycline 100 mg b.i.d. x5 days. Estuardo Daniels MD
--- NOTE | 2018-01-27 03:25 | PN ---
DATE: 01/26/2018 SUBJECTIVE: This is a 72-year-old female. The patient was seen and examined on the bedside, looking comfortable. No nausea, vomiting or diarrhea. No hematuria or hematochezia. No swelling of the legs. No chest pain, no palpitation. Legs has dressing. PHYSICAL EXAMINATION VITAL SIGNS: Temperature 97, blood pressure 160/90, respiratory rate 18. HEENT: Head normocephalic, atraumatic. Eyes; PERRLA. Extraocular muscles intact. Conjunctivae clear. Nose patent. Mucous membrane moist. NECK: Supple. No carotid bruit. No JVD or thyromegaly. CHEST: Bilaterally symmetrical. HEART: S1 and S2 positive. LUNGS: Clear to auscultation. ABDOMEN: Soft. Bowel sounds positive. No organomegaly. EXTREMITIES: There is chronic changes. No evidence of acute active infection. Minimal erythema. Has dressing as per Infectious Disease. LABORATORY DATA: White blood cells 3.7, hemoglobin 11.7, hematocrit 35.2 and platelets 195. Sodium 137, potassium 4, BUN 17, creatinine 0.7, glucose 56. ASSESSMENT AND PLAN: Ms. Natalya Mcwilliams is a 72-year-old lady with leukopenia, anemia, human immunodeficiency virus 1 and [address] is negative[address] Daniels, Infectious Disease. Has chronic lower extremity ulcers, diabetes mellitus, neuropathy, peripheral vascular disease, arthritis and lower extremity venous stasis, dermatitis, ulcers. She is on vancomycin and meropenem. Tolerating antibiotics. May be able to switch to p.o. doxycycline. Discussion done with nurse practitioner, reviewed Dr. Daniels's notes. Podiatry is on the case. Podiatry feels there is no osteomyelitis and patient need 5 more days doxycycline. Extremity ultrasound done, reviewed by me, relatively normal DOTTY and PVR, examination at rest. Reviewed Dr. Barrientos' notes. According to him, face lesion to be removed today under local anesthesia, but when I talked to the patient, she refused. Discussion done with nurse practitioner trying to send patient into rehab, [facility]. We will follow up there. Malina Vance MD
[2018-01-27 07:28] VITALS: RESP 20
[2018-01-27] MEDS: Insulin Reg-LOW-Coverage SC SCH ×2 (07:30→11:21)
[2018-01-27 07:31] LABS: BASO # 0.02 K/mm3 (0.0-2.0); BASO % 0.6 % (0.0-3.0); EOS # 0.1 (0.0-0.7); EOS % 2.7 % (1.5-5.0); GRAN # 1.92 (1.4-6.5); GRAN % 58.5 % (50.0-68.0); LYMPH # 0.7 (1.2-3.4); LYMPH % 22.3 % (22.0-35.0); MEAN CELL VOLUME 87.1 fl (80.0-105.0); MEAN CORPUSCULAR HEMOGLOBIN 28.8 pg (25.0-35.0); MEAN CORPUSCULAR HGB CONC 33.1 g/dl (31.0-37.0); MEAN PLATELET VOLUME 10.3 fl (7.0-11.0); MONO # 0.5 (0.1-0.6); MONO % 15.9 % (1.0-6.0); RBC 4.17 10^6/uL (3.5-6.1); RED CELL DISTRIBUTION WIDTH 14.6 % (11.5-14.5); WHITE BLOOD COUNT 3.3 10^3/ul (4.5-11.0)
[2018-01-27 08:33] LABS: ALB/GLOB RATIO 0.8 (1.1-1.8); ALBUMIN 3.1 g/dL (3.0-4.8); ALT/SGPT 16 U/L (7-56); AST/SGOT 18 U/L (14-36); BLOOD UREA NITROGEN 17 mg/dL (7-21); CALCIUM 9.4 mg/dL (8.4-10.5); GFR NON-AFRICAN AMERICAN > 60
[2018-01-27] MEDS: Pantoprazole 40 mg EC Tab PO SCH (10:04)
[2018-01-27] MEDS: Nystatin 100,000 Units/gm Topical Pow(15 gm) TOP SCH (10:04)
[2018-01-27] MEDS: Ammonium Lactate 12% Cream (140 g) TOP SCH (10:05)
--- NOTE | 2018-01-27 10:43 | CP.PCM.PN ---
<Aicha Centeno - Last Filed: 01/27/18 15:34> Subjective - Date & Time of Evaluation Date of Evaluation: 01/27/18 Time of Evaluation: 10:41 - Subjective Subjective: Podiatry progress note for dr. Lorenzo/ dr Dixon 72 year old female well known to podiatry was seen at bedside for bilateral diabetic venous stasis ulcerations. The patient is seen resting comfortable, AAOx3 and in NAD. patients dressings are seen to be dry, clean and intact. Patient denies any new pedal complains. Patient denies any acute overnight events. denies any overnight F/N/V/C or SOB. Objective - Vital Signs/Intake and Output Vital Signs (last 24 hours): Temp Pulse Resp BP Pulse Ox 97.6 F 62 20 157/69 H 99 01/27/18 06:00 01/27/18 06:00 01/27/18 06:00 01/27/18 06:00 01/27/18 06:00 - Medications Medications: Current Medications Doxycycline Hyclate (Doryx) 100 mg PO Q12 [facility]; Protocol Stop: 01/31/18 22:01 Last Admin: 01/27/18 10:04 Dose: 100 mg Insulin Human Regular (Humulin R Low) 0 units SC ACHS [facility]; Protocol Last Admin: 01/27/18 07:30 Dose: Not Given Lactic Acid (Lac-Hydrin 12% Cream (140 G)) 0 ea TOP BID [facility] Last Admin: 01/27/18 10:05 Dose: 1 applic Lisinopril (Zestril) 10 mg PO DAILY [facility] Last Admin: 01/27/18 10:04 Dose: 10 mg Metformin HCl (Glucophage) 500 mg PO DAILY [facility] Last Admin: 01/27/18 10:04 Dose: 500 mg Nystatin (Nystop Topical Powder) 1 gm TOP TID [facility] Last Admin: 01/27/18 10:04 Dose: 1 applic Pantoprazole Sodium (Protonix Ec Tab) 40 mg PO DAILY [facility] Last Admin: 01/27/18 10:04 Dose: 40 mg Tramadol HCl (Ultram) 50 mg PO Q8H PRN PRN Reason: Pain, Mild (1-3) Last Admin: 01/26/18 09:55 Dose: 50 mg - Labs Labs: 01/27/18 07:00 01/27/18 07:00 PT 14.4 SECONDS (9.4-12.5) H 01/26/18 06:45 INR 1.25 01/26/18 06:45 APTT 26.2 Seconds (25.1-36.5) 01/26/18 06:45 - Constitutional Appears: Well, Non-toxic, No Acute Distress - Head Exam Head Exam: ATRAUMATIC, NORMOCEPHALIC - Extremities Exam Additional comments: B/L LE focused exam: Vascular: non-palpable DP/PT secondary to edema, Minimal erythema to bilateral lower extremity. Cap refill <3 secs x 10 Neuro: diminished protective sensation. Derm: bilateral lower leg numerous minimally weeping superficial venous stasis ulcerations, non probe to tendon or bone, no purulence, no underlying abscess formation noted, +2 nonpitting edema to lower extremity b/l. No clinical signs of active infection, xerotic skin noted circumferentially to the leg b/l MSK: Minimal pain on palpation to the lower extremity b/l - Neurological Exam Neurological Exam: Alert, Awake, Oriented x3 - Psychiatric Exam Psychiatric exam: Normal Affect - Skin Skin Exam: Normal Color Assessment and Plan - Assessment and Plan (Free Text) Assessment: 72 yo female with severe peripheral vascular disease and chronic venous stasis ulcerations with resolving cellulitis bilaterally. Plan: Patient seen and evaluated at the bedside Plan discussed in details with attending Dr Dixon Chart, labs and vitals reviewed; afebrile and WBC 3.3 (01/27) bilateral lower extremity dressing clean, dry and intact; dressed with xeroform, gauze LE ultrasound arterial: normal erick/pvr patient stable from podiatry point of view; patient will follow up with Dr Dixon within 1 week of discharge. Lac-hydrin to be applied bid Multipodus boots ordered and to be worn at all times while laying in bed Podiatry will continue to follow up the patient while in house <David Lorenzo - Last Filed: 01/27/18 17:04> Objective - Vital Signs/Intake and Output Vital Signs (last 24 hours): Temp Pulse Resp BP Pulse Ox 98.1 F 67 20 130/79 96 01/27/18 14:00 01/27/18 14:00 01/27/18 14:00 01/27/18 14:00 01/27/18 14:00 - Labs Labs: 01/27/18 07:00 01/27/18 07:00 PT 14.4 SECONDS (9.4-12.5) H 01/26/18 06:45 INR 1.25 01/26/18 06:45 APTT 26.2 Seconds (25.1-36.5) 01/26/18 06:45 Attending/Attestation - Attestation I have personally seen and examined this patient.: Yes I have fully participated in the care of the patient.: Yes I have reviewed all pertinent clinical information, including history, physical exam and plan: Yes
[2018-01-27 14:37] VITALS: BP 130/79; PULSE 67; TEMP 98.1; O2SAT 96
--- NOTE | 2018-01-27 15:43 | PN ---
DATE: 01/27/2018 SUBJECTIVE: The patient is in bed, in no acute distress, nontoxic. No fevers and chills. PHYSICAL EXAMINATION: VITAL SIGNS: On exam, temperature is 98, blood pressure is 120/70, respiratory rate of 16. HEENT: Examination of HEENT is unremarkable. NECK: Supple. LUNGS: Have decreased breath sounds. HEART: Normal S1 and S2. ABDOMEN: Soft. EXTREMITIES: Examination of the legs are noted and dry chronic changes. Review of medication reveals the patient is on p.o. doxycycline. Dr. Vance's note from yesterday is reviewed and appreciated. ASSESSMENT AND PLAN: A 72-year-old female with chronic lower extremity ulcer, diabetic, diabetic neuropathy, peripheral vascular disease, arthritis, bilateral lower extremity venous ulcers, cellulitis, allergic to penicillin and now on doxycycline p.o. x5 days total. We will follow with you. Estuardo Daniels MD
== END 2018-01-27 16:26 | DRG 603 ==
LOC: ED 09:38 → ERH 13:17 → 5RSO 20:42
PROVIDERS: ADMIT Internal Medicine; ATTEND Internal Medicine
PROC: 8E0ZXY6 Isolation (ICD-10-PCS; principal; 2018-01-22)
DX: L03.115 Cellulitis of right lower limb (principal); L97.919 Non-pressure chronic ulcer of unspecified part of right lower leg with unspecified severity; L97.929 Non-pressure chronic ulcer of unspecified part of left lower leg with unspecified severity; E11.622 Type 2 diabetes mellitus with other skin ulcer; I87.309 Chronic venous hypertension (idiopathic) without complications of unspecified lower extremity; W57.XXXA Bitten or stung by nonvenomous insect and other nonvenomous arthropods, initial encounter; E11.40 Type 2 diabetes mellitus with diabetic neuropathy, unspecified; E11.51 Type 2 diabetes mellitus with diabetic peripheral angiopathy without gangrene; R21 Rash and other nonspecific skin eruption; E11.65 Type 2 diabetes mellitus with hyperglycemia; L03.116 Cellulitis of left lower limb; E66.9 Obesity, unspecified; D72.819 Decreased white blood cell count, unspecified; D64.9 Anemia, unspecified; I87.2 Venous insufficiency (chronic) (peripheral); M19.90 Unspecified osteoarthritis, unspecified site; L30.9 Dermatitis, unspecified; I87.8 Other specified disorders of veins; E11.22 Type 2 diabetes mellitus with diabetic chronic kidney disease; N18.9 Chronic kidney disease, unspecified; I12.9 Hypertensive chronic kidney disease with stage 1 through stage 4 chronic kidney disease, or unspecified chronic kidney disease; Z91.19 Patient's noncompliance with other medical treatment and regimen; Z68.32 Body mass index [BMI] 32.0-32.9, adult; D22.39 Melanocytic nevi of other parts of face; Z88.0 Allergy status to penicillin; Z88.1 Allergy status to other antibiotic agents; Z53.20 Procedure and treatment not carried out because of patient's decision for unspecified reasons; R40.2412 Glasgow coma scale score 13-15, at arrival to emergency department